=== PATIENT | female | born 1950 | race Caucasian/White ===

== ENCOUNTER 2023-12-18 03:29 | Inpatient (IN) | payer MEDICARE, OTHER, SELFPAY ==
[2023-12-17 23:00] VITALS: BP 123/65
[2023-12-17 23:01] VITALS: BP 123/65
[2023-12-18] VITALS (9 sets, daily range): BP systolic 112–150; BP diastolic 61–95
--- NOTE | 2023-12-18 00:05 | ED.MUSCINJ ---
HPI-Injury
<JENNY Connor - Last Filed: 12/18/23 00:36>
General
Chief Complaint: Fall
Source: patient
Exam Limitations: none
Time Seen by Provider: 12/17/23 23:39
Travel History
Have you had any contact with someone who has COVID-19?: No
Do you have any symptoms of coronavirus? Fever > 100 degrees, chills, cough, shortness of breath, sore throat, loss of taste or smell, muscle aches, or headache?: No
History of Present Illness-Injury
Initial Injury comments:
73 YO F with PMH of HLD presents here today for fall on her left hip x 6 hours. Pt reports she was carrying a plant and wearing flip flops when she tripped on a rug. She then fell directly onto her left hip. She took an Aleve which did not provide
relief. She also iced and applied heat without much relief. She rates the pain a 4/10 at rest and describes the pain as 'labor-like' if she attempts to walk or move her hip. She does mention radiation of pain into her left knee and left ankle. Pt
states this has never happened before. She reports some discomfort in the right hip, unrelated to her injury. She is no currently in PT for her right hip, which he states she feels discomfort in at times. Denies N,V,D, chest pain or SOB.
Denies surgical orthopedic history.
Past History
<JENNY Connor - Last Filed: 12/18/23 00:36>
Past History
ED Past Medical History: Hypercholesterolemia; Negative CAD or HTN
ED Past Surgical History:
Social History
Tobacco: Smoker
Alcohol: None
Drug: None
Personal:
Living: with family
Family History
Family History: Other (No significant medical history)
Review of Systems
<JENNY Connor - Last Filed: 12/18/23 00:36>
Review of Systems
Constitutional: Reports no symptoms
EENT: Reports no symptoms
Respiratory: Reports no symptoms
Cardiac: Reports no symptoms
ABD/GI: Reports no symptoms
: Reports no symptoms
Musculoskeletal: Reports muscle pain
Skin: Reports no symptoms
Neurological: Reports no symptoms
Endocrine: Reports no symptoms
Hematologic/Lymphatic: Reports no symptoms
Psychiatric: Reports no symptoms
Musculoskeletal Injury Exam
<ST GeetaOR - Last Filed: 12/18/23 00:36>
Musculoskeletal Injury Exam
Left:
Pain with Movement?: Severe
Tender to palpation?: Severe
Phy Exam
<Marina Hathaway [facility] - Last Filed: 12/18/23 00:36>
General Physical Exam
General Presentation: well appearing and mild distress
General age: appears stated age
General Skin: warm and dry
General Habitus: normal
General Mental: alert
General Hydration: appears well hydrated
Cardiovascular Exam
Cardiovascular Exam: regular rate/rhythm
Pulmonary Exam
Pulmonary Exam: lungs clear
Neurological Exam
Neurological Exam: alert and oriented x3
Musculoskeletal Exam
Musculoskeletal Exam: other
Injury Course
<Marina Hathaway [facility] - Last Filed: 12/18/23 00:36>
Orders/Labs/Results
Orders:
Orders
12/17/23 23:02
CR Hip - LT w/wo Pel 2-3 Vw* Urgent
Reason For Exam: left hip pain/mechanical fall
Include a pelvis x-ray?: Yes
12/18/23 00:25
CT Lower Ext W/o Iv Cont Lt Urgent
Comment:
Reason For Exam: fall, severe L hip pain.
12/18/23 00:27
Ketorolac [Toradol] 15 mg IV NOW STA
12/18/23 00:37
CPK [Creatine Phosphokinase] Urgent
Complete Blood Count/With Diff Urgent
Comprehensive Metabolic Panel Urgent
12/18/23 01:51
Urinalysis Reflex To Culture Urgent
Date Specimen was Collected: 12/18/23
Time Specimen was Collected: 01:45
Urine Microscopic Reflex Cult Urgent
Urine Culture Urgent
ROMY Source: U
Specimen Description:
Date Specimen was Collected: 12/18/23
Time Specimen was Collected: 01:45
12/18/23 02:20
Admit/Transfer Patient As Directed
Co-Sign Provider:
Level of Care: Inpatient admission
Assign to:: Medical/Surgical
Physician / Group: Isabela/hospitalist
Diagnosis: Fall and L hip fracture
Reason for Hospitalization: Fall and L hip fracture
Expected length of stay greater than two midnights?: Yes
ELOS- Estimated Length of Stay in days: 3
I certify the patient meets the requirements for IP care: Yes
12/18/23 02:21
Code Status As Directed
Resuscitation Status: Full Code
12/18/23 03:31
Bisacodyl [Dulcolax] 10 mg RECTAL [id number] PRN
Docusate W/Senna [Senokot-S] 1 tablet PO BIDPRN PRN
Morphine Sulfate 2 mg IV Q4HPRN PRN
Ondansetron Injectable [Zofran] 4 mg IV Q6HPRN PRN
Polyethylene Glycol Powder [Miralax] 17 grams PO DAILYPRN PRN
12/18/23 03:31
ORTHOPEDIC CONSULT Routine
Consulting Provider: Daryn Jaffe
Was physician already notified: Yes
Activity As Directed
Activity Level: As Tolerated
Pneumatic Compression Sleeves As Directed
Type: Knee high
Comment: RLE
Vital Signs As Directed
Frequency: Per unit guidelines
DX Deep Vein Thrombosis Video Routine
12/18/23 05:38
Basic Metabolic Panel IN AM
Complete Blood Count/No Diff IN AM
Magnesium IN AM
12/18/23 Breakfast
Regular
At Your Request: Full Participation
12/18/23 08:00
Lansoprazole [Prevacid] 30 mg PO DAILY
12/18/23 22:00
Atorvastatin [Lipitor] 10 mg PO HS
Abnormal Lab Results
12/18/23 12/18/23
00:37 01:51
MCH 31.4 H pg
(27.0-31.0)
Absolute Neuts (auto) 7.1 H 10^3/uL
(1.4-6.5)
Absolute Lymphs (auto) 1.1 L 10^3/uL
(1.2-3.4)
Absolute Monos (auto) 0.8 H 10^3/uL
(0.1-0.6)
Neutrophils % 77.3 H %
(42.2-75.2)
Lymphocytes % 12.4 L %
(20.5-51.1)
BUN 31 H mg/dl
(7-17)
Creatinine 0.5 L mg/dL
(0.6-1.0)
Leukocyte Esterase Rfl Trace A
(Negative)
Urine RBC 3-6 A /HPF
(0-2)
Urine Bacteria (Reflex) Moderate A
(Negative)
12/18/23 00:37
12/18/23 00:37
<Brenda Redmond, - Last Filed: 12/18/23 07:16>
Orders/Labs/Results
Orders:
Orders
12/17/23 23:02
CR Hip - LT w/wo Pel 2-3 Vw* Urgent
Reason For Exam: left hip pain/mechanical fall
Include a pelvis x-ray?: Yes
12/18/23 00:25
CT Lower Ext W/o Iv Cont Lt Urgent
Comment:
Reason For Exam: fall, severe L hip pain.
12/18/23 00:27
Ketorolac [Toradol] 15 mg IV NOW STA
12/18/23 00:37
CPK [Creatine Phosphokinase] Urgent
Complete Blood Count/With Diff Urgent
Comprehensive Metabolic Panel Urgent
12/18/23 01:51
Urinalysis Reflex To Culture Urgent
Date Specimen was Collected: 12/18/23
Time Specimen was Collected: 01:45
Urine Microscopic Reflex Cult Urgent
Urine Culture Urgent
ROMY Source: U
Specimen Description:
Date Specimen was Collected: 12/18/23
Time Specimen was Collected: 01:45
12/18/23 02:20
Admit/Transfer Patient As Directed
Co-Sign Provider:
Level of Care: Inpatient admission
Assign to:: Medical/Surgical
Physician / Group: Isabela/hospitalist
Diagnosis: Fall and L hip fracture
Reason for Hospitalization: Fall and L hip fracture
Expected length of stay greater than two midnights?: Yes
ELOS- Estimated Length of Stay in days: 3
I certify the patient meets the requirements for IP care: Yes
12/18/23 02:21
Code Status As Directed
Resuscitation Status: Full Code
12/18/23 03:31
Bisacodyl [Dulcolax] 10 mg RECTAL [id number] PRN
Docusate W/Senna [Senokot-S] 1 tablet PO BIDPRN PRN
Morphine Sulfate 2 mg IV Q4HPRN PRN
Ondansetron Injectable [Zofran] 4 mg IV Q6HPRN PRN
Polyethylene Glycol Powder [Miralax] 17 grams PO DAILYPRN PRN
05/23/24 03:31
ORTHOPEDIC CONSULT Routine
Consulting Provider: Daryn Jaffe
Was physician already notified: Yes
Activity As Directed
Activity Level: As Tolerated
Pneumatic Compression Sleeves As Directed
Type: Knee high
Comment: RLE
Vital Signs As Directed
Frequency: Per unit guidelines
DX Deep Vein Thrombosis Video Routine
12/18/23 05:38
Basic Metabolic Panel IN AM
Complete Blood Count/No Diff IN AM
Magnesium IN AM
12/18/23 Breakfast
Regular
At Your Request: Full Participation
12/18/23 08:00
Lansoprazole [Prevacid] 30 mg PO DAILY
12/18/23 22:00
Atorvastatin [Lipitor] 10 mg PO HS
Abnormal Lab Results
12/18/23 12/18/23
00:37 01:51
MCH 31.4 H pg
(27.0-31.0)
Absolute Neuts (auto) 7.1 H 10^3/uL
(1.4-6.5)
Absolute Lymphs (auto) 1.1 L 10^3/uL
(1.2-3.4)
Absolute Monos (auto) 0.8 H 10^3/uL
(0.1-0.6)
Neutrophils % 77.3 H %
(42.2-75.2)
Lymphocytes % 12.4 L %
(20.5-51.1)
BUN 31 H mg/dl
(7-17)
Creatinine 0.5 L mg/dL
(0.6-1.0)
Leukocyte Esterase Rfl Trace A
(Negative)
Urine RBC 3-6 A /HPF
(0-2)
Urine Bacteria (Reflex) Moderate A
(Negative)
12/18/23 00:37
12/18/23 00:37
<JENNY Connor - Last Filed: 12/18/23 00:36>
MDM/Problems Addressed
Differential Diagnosis Includes:
Hip fracture, hip dislocation
<JENNY Connro - Last Filed: 12/18/23 00:36>
*Critical Care Note
Total Time (30-74mins, 75-104mins- exclusive of procedures): Not Applicable
<Brenda Redmond DO - Last Filed: 12/18/23 07:16>
*Radiology
Radiology exam reviewed: preliminary read by ED provider (There is a question of nondisplaced fracture intertrochanteric but not definitive. Will check CT) and radiology read reviewed (CAT scan shows intertrochanteric left hip fracture)
*Pulse Oximetry
Patient hypoxic: no
ED Attending Note
<JENNY Connor - Last Filed: 12/18/23 00:36>
-
Portions of this chart may have been created with voice recognition software.� Occasional wrong word or��sound alike� substitutions may have occurred due to the inherent limitations of voice recognition software.
<Brenda Redmond DO - Last Filed: 12/18/23 07:16>
ED Attending Note
Patient seen and examined by attending physician: Yes
I performed the substantive portion of visit, reviewed & personally made and approve the management plan that is documented in note by myself or TRISTEN.: Yes
I performed a history and physical exam of patient and discussed management with resident, I reviewed resident's note and agree with documented findings and plan of care.: Yes
ED Attending Note:
This is a 73-year-old woman with history of hyperlipidemia maintained on simvastatin. She arrives via EMS after suffering mechanical trip and fall at home tripping over a throw rug while wearing flip-flops falling forward onto hardwood floor. She
denies head injury nor loss of consciousness and has full recollection of the events. She noted immediate severe pain about her left hip after fall with inability to reposition and inability to stand. She did call out to her who was in the
room for assistance but despite local ice, heat and taking 1 Aleve, tincture of time it took approximately 3 hours to eventually be able to to reposition and get up off of the floor to sit in a nearby chair. After doing so she continues with severe
left hip pain and thus called 911. She denies back pain, no abdominal pain, no dizziness nor lightheadedness, no neck pain or headache, no nausea or vomiting. Left hip pain intermittently radiates down her left lower extremity but she denies
weakness nor numbness.
Besides simvastatin she takes Aleve intermittently for osteoarthritis. She takes no anticoagulants including low-dose aspirin.
She is generally quite active, gardening and doing other outdoor activities without limitations.
GENERAL: 73-year-old woman appears her stated age, awake and alert, pleasant, appears in mild distress related to pain. Easily communicative. is accompanying. Mild odor of tobacco about the patient.
EYE: pupils equal and reactive. anicteric. The head is normocephalic, atraumatic.
NECK: Supple, nontender, no midline bony tenderness, full range of motion without difficulty nor pain, no significant adenopathy.
ENT: posterior pharynx is clear, oral mucosa is moist. No rhinorrhea. TMs are clear bilaterally.
CARDIAC: Regular rate and rhythm. no murmur.
LUNGS: Clear breath sounds bilaterally, no acute respiratory distress, no wheezes/rales/rhonchi. No chest wall tenderness.
ABDOMEN: Soft, nondistended, without focal tenderness, no r/g, no cvat. normoactive BS.
BACK: No midline bony tenderness. No bony pelvic tenderness with pelvic rock.
NEUROLOGICAL: Alert and oriented x3, no focal neuro deficits. Motor strength is 5/5 bilaterally. Gross sensation is intact.
SKIN: Warm and dry, normal color, skin intact. No rash.
MUSCULOSKELETAL: No C/C/E. peripheral pulses are full and equal b/l. There is moderate tenderness about the left anterolateral hip with markedly restricted range of motion of the left hip related to pain. There is no tenderness to the thigh nor
knee nor lower extremity. Distal sensation, strength intact. There is no evidence of leg length discrepancy and left lower extremity is not externally rotated.
PSYCH: Normal and appropriate interaction.
Concern for left hip fracture, other consideration is pubic ramus fracture.
Left hip x-ray however is unremarkable, no definitive evidence of fracture however I question mild none descriptive lucency at the greater trochanter there is no convincing evidence of fracture.
Will check CT of the left hip.
Will medicate for pain with a small dose of IV Toradol. Patient elects at least at this point to forego narcotic pain medication.
She does admit to lying on the hardwood floor for approximately 3 hours, thus there could be some concern for rhabdo myelitis, will check CPK along with routine labs.
She remains bright and alert, no focal neurodeficits, denies head injury and takes no anticoagulants thus no indication for CT of the head.
There is no midline vertebral tenderness, nothing to suggest vertebral fracture.
Discharge Plan
Departure
Patient Disposition: Admit
Date of Disposition: 12/18/23
Time of Disposition: 01:41
Admit to: Med/Surg
Admit to doctor: Isabela
Presentation/result/management discussed w/ accepting MD/DO: Hospitalist
Condition: Fair
Discharge Problem:
acute left hip fracture
Interventions
Interventions:
*Risk Screen - Suicide Last Done: 12/17/23 22:58
*General Assessment Last Done: 12/17/23 22:58
*Neglect/Abuse Screening Last Done: 12/17/23 22:58
ED- Fall Risk Assessment Last Done: 12/17/23 23:19
*ED COVID-19 Vaccine History Last Done: 12/17/23 22:58
ED-Musculoskeletal Assessment Last Done: 12/17/23 23:19
ED- Neurological Assessment Last Done: 12/17/23 23:19
[2023-12-18] MEDS: TORADOL 15 MG IV ×2 (00:41→13:22)
[2023-12-18 00:44] LABS: % Basophils 0.1 % (0-2); % Eosinophils 1.1 % (0-6); % Immature Granulocytes 0.4 % (0-0.5); % Lymphocytes 12.4 % (20.5-51.1); % Monocytes 8.7 % (1.7-9.3); % Neutrophils 77.3 % (42.2-75.2); Absolute Eosinophils 0.1 10^3/uL (0-0.7); Absolute Lymphocytes 1.1 10^3/uL (1.2-3.4); Absolute Monocytes 0.8 10^3/uL (0.1-0.6); Absolute Neutrophils 7.1 10^3/uL (1.4-6.5); Hematocrit 39.5 % (37.0-47.0); Hemoglobin 13.7 g/dL (12.0-16.0); Mean Corp Hgb Conc. 34.7 g/dL (33.0-37.0); Mean Corpuscular Hgb 31.4 pg (27.0-31.0); Mean Corpuscular Volume 90.4 fL (81.0-99.0); Mean Platelet Volume 9.1 fL (7.4-10.4); Platelet Count 173 10^3/uL (130-400); Red Blood Cell Count 4.37 10^6/uL (4.20-5.40); Red Cell Dist. Width 12.4 % (11.5-14.5); White Blood Cell Count 9.2 10^3/uL (4.8-10.8)
[2023-12-18 00:45] LABS: Nucleated Red Blood Cells % 0 %
[2023-12-18 01:03] LABS: ALT (SGPT) 20 U/L (0-35); AST (SGOT) 25 U/L (14-36); Albumin 3.9 g/dl (3.5-5.0); Alkaline Phosphatase 56 U/L (38-126); Blood Urea Nitrogen 31 mg/dl (7-17); Calcium 9.8 mg/dl (8.4-10.2); Carbon Dioxide 29 mmol/L (22-30); Creatine Phosphokinase 84 U/L (30-135); Glucose 99 mg/dl (70-99); Total Bilirubin 0.4 mg/dl (0.2-1.3); Total Protein 6.3 g/dl (6.3-8.2); eGFR > 60.00
[2023-12-18 01:09] LABS: Chloride 104 mmol/L (98-107); Potassium 3.9 mmol/L (3.5-5.1); Sodium 138 mmol/L (135-145)
--- NOTE | 2023-12-18 01:41 | HPS.HSE ---
Family Physician
-
Family Physician: Lyle Grayson
Chief Complaint
-
Mechanical fall with left hip fracture
History of Present Illness
HPI: 73 yo F PMH HLD; p/w mechanical fall at home which resulted in left hip pain. Pt was carrying a plant and wearing flip flops when she tripped over a rug. She fell directly onto her left hip. The hip pain is most severe with movement.
She took Aleve without pain relief. She is not on any blood thinner
Medical History
Past Medical History
Past Medical History: Reports Other
Additional Past Medical History:
HLD
Past Surgical History: Reports Gynocological (Ovarian cyst removal)
Social History
Tobacco: Smoker (1 pack/day for about 20 years)
Alcohol: Occasional
Personal:
Living: With Family
Family History
Family History: Not pertinent
Allergies / Home Medications
Allergies reflects when Allergies were last updated in [facility].
Home Medications with original date entered in [facility]
Allergy/Medication List:
Medications on admission are unable to be verified or confirmed at this time.
Review of Systems
-
Musculoskeletal: Reports See HPI and Joint Pain (L hip)
Physical Exam
Vital Signs
Vital Signs
Temp Pulse Resp BP Pulse Ox
36.7 C 72 19 126/71 97
12/17/23 22:58 12/17/23 22:58 12/17/23 22:58 12/18/23 01:00 12/17/23 22:58
Physical Exam
General: Well Developed, Well Nourished, No Apparent Distress, Conversant and Pain
HEENT: NormoCephalic, Moist mucous membranes and Atraumatic
Respiratory: Clear and Non Labored Respirations; No Accessory Resp Muscle Use
Cardiac: S1/S2 and Regular Rhythm; No Murmur or Rub
GI: Soft, Non Tender, Non Distended and Normal Bowel Sounds; No Organomegaly
Rectal: Deferred by Provider
Musculoskeletal: No Edema
Skin: No Rash
Neuro: Awake, Alert and Nonfocal/grossly intact
Psych: Calm and Intact Judgment/Insight
Laboratory Results
-
12/18/23 00:37
12/18/23 00:37
Laboratory Results
Total Bilirubin 0.4 mg/dl (0.2-1.3) 12/18/23 00:37
AST 25 U/L (14-36) 12/18/23 00:37
ALT 20 U/L (0-35) 12/18/23 00:37
Alkaline Phosphatase 56 U/L (38-126) 12/18/23 00:37
Data Reviewed
-
Lab Data: Labs Reviewed by me
Impression/Plan
-
HPI: 73 yo F PMH HLD; p/w mechanical fall at home which resulted in left hip pain. Pt was carrying a plant and wearing flip flops when she tripped over a rug. She fell directly onto her left hip. The hip pain is most severe with movement.
She took Aleve without pain relief. She is not on any blood thinner
A/P:
# Mechanical fall with left hip fracture
Follow formal reports of x-ray and CT left hip
Pain control with IV morphine
Ortho consulted, Dr. Jaffe will plan surgery on Friday
DVT ppx with SCD for now prior to OR
Patient is low to intermediate risk for low to intermediate risk procedure. Benefit of procedure outweighs risk.
# HLD
cont [employer] Statin
# Active smoker/nicotine dependence, 1 pack/day for 20 years
Patient declined nicotine patch at this time
DVT ppx: SCD right lower extremity
FC
[2023-12-18 01:57] LABS: Urine Albumin Negative (Neg - Trace); Urine Bilirubin Negative (Negative); Urine Character Clear (Clear); Urine Color Yellow; Urine Glucose Negative (Negative); Urine Ketone Negative (Negative); Urine Leukocyte Trace (Negative); Urine Nitrite Negative (Negative); Urine Occult Blood Negative (Negative); Urine Specific Gravity 1.015 (<1.030); Urine Urobilinogen Negative (Neg - 1+)
[2023-12-18 03:34] LABS: Urine Squamous Cell 16-20 /LPF (Few)
[2023-12-18 03:35] LABS: Urine Bacteria Moderate (Negative); Urine White Cell 0-2 /HPF (0-5)
[2023-12-18 06:07] LABS: Hematocrit 39.6 % (37.0-47.0); Hemoglobin 13.9 g/dL (12.0-16.0); Mean Corp Hgb Conc. 35.1 g/dL (33.0-37.0); Mean Corpuscular Hgb 31.6 pg (27.0-31.0); Mean Platelet Volume 9.3 fL (7.4-10.4); Platelet Count 183 10^3/uL (130-400); Red Cell Dist. Width 12.3 % (11.5-14.5); White Blood Cell Count 6.9 10^3/uL (4.8-10.8)
[2023-12-18 06:28] LABS: Blood Urea Nitrogen 25 mg/dl (7-17); Calcium 9.6 mg/dl (8.4-10.2); Carbon Dioxide 26 mmol/L (22-30); Chloride 105 mmol/L (98-107); Glucose 94 mg/dl (70-99); Magnesium 2.1 mg/dl (1.6-2.3); Sodium 137 mmol/L (135-145); eGFR > 60.00
[2023-12-18] MEDS: MORPHINE SULFATE 2 MG IV (07:24)
--- NOTE | 2023-12-18 09:44 | W.PN.HOSP.TC ---
Today's Communication/Plan
-
Left hip fracture with planned intervention on 12/18.
N.p.o. postmidnight
Continue pain control
Mechanical DVT prophylaxis
Assessment / Plan
Assessment / Plan
HPI: 73 yo F PMH HLD; p/w mechanical fall at home which resulted in left hip pain. Pt was carrying a plant and wearing flip flops when she tripped over a rug. She fell directly onto her left hip. The hip pain is most severe with movement.
Impression:
Mechanical fall with left hip fracture
CT scan of the left hip: Nondisplaced intertrochanteric fracture left femur. Mildly comminuted greater trochanteric fracture.
Orthopedic consultation with pending decision for intervention.
Continue pain control with IV morphine
DVT prophylaxis: Mechanical pending surgical intervention.
Medical clearance: Patient with no chronic medical problems other than dyslipidemia. Denies any history of cardiovascular conditions, diabetes. No additional workup required for surgical clearance.
Dyslipidemia continue statin
Tobacco smoker/nicotine dependence.
1 pack/day for 20 years
Patient declined nicotine patch
Anticipated Discharge: > 48 hours
Subjective/Interval History
-
Date of Service: December 18, 2023
Objective Data
-
Labs:
Laboratory Results
12/18/23 12/18/23
00:37 05:38
WBC 9.2 6.9
Hgb 13.7 13.9
Hct 39.5 39.6
Plt Count 173 183
Sodium 138 137
Potassium 3.9 4.0
Chloride 104 105
Carbon Dioxide 29 26
BUN 31 H 25 H
Creatinine 0.5 L 0.5 L
Glucose 99 94
Calcium 9.8 9.6
Total Bilirubin 0.4
AST 25
ALT 20
Alkaline Phosphatase 56
Vital Signs:
Vital Signs
Temp Pulse Resp BP Pulse Ox
98 F 64 16 123/61 96
12/18/23 07:35 12/18/23 07:35 12/18/23 07:35 12/18/23 07:35 12/18/23 07:35
Physical Exam
-
General: Well Developed and No Apparent Distress
HEENT: Normocephalic, Atraumatic and Moist Mucous Membranes
Respiratory: Clear to Auscultation
Cardiac: Regular Rhythm and S1/S2; Negative Murmur, Rub or Gallop
GI: Soft, Nontender, Nondistended and Normal Bowel Sounds; Negative Organomegaly
Rectal: Deferred by Provider
Musculoskeletal: No Clubbing, No Cyanosis and No Edema
Skin: Negative Rash
Neuro: Nonfocal/Grossly Intact
--- NOTE | 2023-12-18 13:24 | PTCARENOTE ---
Pt arrived to 2S in bed. Full assessment completed. PRN torodol provided for c/o moderate L hip pain. LLE with decreased movement, neurovascular assessment otherwise intact. Purewick in use. Static air overlay applied. Bed locked and in the lowest
position, safety maintained. Oriented to room and call mcgregor.
--- NOTE | 2023-12-18 17:27 | CON.ORTHO ---
Consultation
-
Date/Time Consultation Requested: 1:30 AM 12/18/2023
Date/Time Consultation Performed: 730 AM 12/18/2023
Requesting Provider: Ruy
Performing Provider: Ld
Reason for Consultation: Left hip fracture
Consultation - Orthopedics
History
HPI: 73-year-old community ambulator presented to the [place] emergency department status post mechanical trip and fall at home with complaints of left hip pain and inability to bear weight. She was subsequently worked up diagnosed with a
nondisplaced left intertrochanteric femur fracture. She was admitted to the hospital service and orthopedics was consulted for further evaluation and treatment. Patient reports pain well localized to the groin lateral hip region. Pain is made
worse by palpation affected area with attempted ambulation. She does report smoking three quarters of a pack of cigarettes daily. She lives at home with her . She does not use any assistive devices for ambulatory assistance
Allergies / Home Medications
Past medical history: Hypercholesterolemia
Past surgical history:
Social history: Cigarette smoker, lives at home with
Family history: Not pertinent
Allergy/AdvReac Type Severity Reaction Status Date / Time
latex Allergy Itching Verified 12/18/23 10:13
Sulfa (Sulfonamide Allergy Unknown Verified 12/17/23 22:58
Antibiotics)
�Medication �Instructions �Recorded
simvastatin 20 mg tablet 40 mg PO HS 05/12/16
calcium carbonate 500 mg PO DAILY 12/18/23
cholecalciferol (vitamin D3) 25 25 mcg PO DAILY 12/18/23
mcg (1,000 unit) tablet (Vitamin
D3)
naproxen sodium 220 mg tablet 220 mg PO [id number] PRN mild pain 12/18/23
(Aleve)
therapeutic multivitamin 1 tab PO DAILY 12/18/23
vitamins A,C,L-this-qfblxc 2,148 1 tab PO DAILY 12/18/23
mcg-113 mg-45 mg-17.4 mg tablet
(PreserVision AREDS)
Vital Signs / Lab Results
Temp Pulse Resp BP Pulse Ox
98.4 F 110 17 150/95 96
12/18/23 15:00 12/18/23 15:00 12/18/23 15:00 12/18/23 15:00 12/18/23 15:00
12/18/23 05:38
12/18/23 05:38
10 point review systems reviewed and negative unless otherwise stated
General: Pleasant, no acute distress at rest
Musculoskeletal left lower extremity
Skin intact, no erythema, no ecchymotic staining
Tenderness palpation over groin and lateral trochanteric flare
No leg length discrepancy
No ipsilateral palpable knee effusion
Pain with logroll
Distal motor and sensation grossly intact positive EHL, FHL, ankle dorsiflexion, plantarflexion
Brisk cap refill
No other areas of bony tenderness palpation crepitation of long bones and joints on tertiary examination
Diagnostic studies
X-rays left hip and CT scan left hip I independently viewed by myself. There is evidence of mildly comminuted greater trochanter fracture. There is a few slices most notably on the coronal CT scan that does show a nondisplaced intertrochanteric
femur fracture.
Assessment / Plan
73-year-old female relatively healthy status post fall with nondisplaced left intertrochanteric femur fracture. I do long detailed discussion with the patient and her at bedside regarding diagnosis and treatment options. Discussed with
surgical nonsurgical options. After discussion we mutually like to proceed with surgical intervention in the form of cephalomedullary nail fixation. I did explain to the patient that her fracture is essentially nondisplaced and the goal of surgery
would be to stabilize the fracture and prevent any further interval displacement. We discussed risks benefits and alternatives of surgery. Discussed the usual expected perioperative postoperative course. After discussion verbal consent was
obtained. Will plan to obtain written consent prior to surgery
Nonweightbearing left lower extremity
Pain control
N.p.o. at midnight
Please hold DVT prophylaxis preparation for our
Medical management per primary team
Plan: 2 OR for operative fixation left nondisplaced intertrochanteric femur fracture pending OR availability and medical clearance
[2023-12-18] MEDS: LIPITOR 10 MG PO (22:27)
[2023-12-19] VITALS (12 sets, daily range): BP systolic 89–140; BP diastolic 52–75
--- NOTE | 2023-12-19 10:39 | PTCARENOTE ---
Called to room by PCT due to patient refusing to allow PCT's to perform CHG bath and bed change in preparation for OR today; Patient upset, states 'she has lost carloz' and 'people are not understanding me'; Explained to patient purpose of CHG bath
and complete bed change, explained process for completing these tasks; Patient noted to be verbally aggressive towards staff, angry, and uncooperative with staff; Patient complains of pain but refuses all pain medications available in the MAR;
Patient eventually allowed two RN's and PCT to complete CHG bath and complete bed change; Patient currently refusing Q2 turns, patient educated on importance of Q2 turns and pressure ulcer prevention; Patient allows right heel to be elevated but
refuses left heel to be elevated; Patient upset that surgery is tentatively scheduled for this afternoon and not this morning, states she is angry; Care ongoing
--- NOTE | 2023-12-19 11:43 | CM ---
Addendum entered by NIC Marrero 12/19/23 11:57:
PASRR attached to SNF referral.
Original Note:
Met with patient and in room prior to surgery. Patient admitted from home with fractured left hip. Prior to admit patient independent in home and community. Patient and spouse live in 2 level home. THere are 3 steps to enter front or rear
of house. They usually use rear of house and those steps have bilateral rails. There is no bathroom on first floor. UP 13 steps with left rail ascending to bedrooms and full bathroom.
Patient is willing to get commode and sleep on sofa on first floor.
She has to step over tub to get into shower. There is one shower rail and patient also holds onto soap tray.
There are crutches of at home.
She has not had any history of VNA or SNF rehab.
PCP Dr. Jeremy Grayson
[facility]: [facility]
Discussed options for home care and snf and reviewed medicare ratings. Per patient referrals made to [facility] and [facility] for post acute care.
Preference of patient and spouse is to go home if able. Referrals sent to both in [facility].
PLAN: snf versus home with VNA.
[2023-12-19] MEDS: TORADOL 15 MG IV ×2 (12:46→20:06)
--- NOTE | 2023-12-19 16:25 | W.PN.HOSP.TC ---
Today's Communication/Plan
-
NPO.
Pending OR
Assessment / Plan
Assessment / Plan
HPI: 73 yo F PMH HLD; p/w mechanical fall at home which resulted in left hip pain. Pt was carrying a plant and wearing flip flops when she tripped over a rug. She fell directly onto her left hip. The hip pain is most severe with movement.
Impression:
Mechanical fall with left hip fracture
CT scan of the left hip: Nondisplaced intertrochanteric fracture left femur. Mildly comminuted greater trochanteric fracture.
Orthopedic consultation with pending decision for intervention.
Continue pain control with IV morphine
DVT prophylaxis: Mechanical pending surgical intervention.
Medical clearance: Patient with no chronic medical problems other than dyslipidemia. Denies any history of cardiovascular conditions, diabetes. No additional workup required for surgical clearance.
Dyslipidemia continue statin
Tobacco smoker/nicotine dependence.
1 pack/day for 20 years
Patient declined nicotine patch
Anticipated Discharge: > 48 hours
Subjective/Interval History
-
Date of Service: December 19, 2023
Objective Data
-
Vital Signs:
Vital Signs
Temp Pulse Resp BP Pulse Ox
98.0 F 65 18 140/75 97
12/19/23 15:27 12/19/23 15:27 12/19/23 15:27 12/19/23 15:27 12/19/23 15:27
I&O
12/18/23 12/19/23 12/20/23
06:59 06:59 06:59
Intake Total 480 / 480
Output Total 550 / 550
Balance -70 / -70
Physical Exam
-
General: Well Developed and No Apparent Distress
HEENT: Normocephalic, Atraumatic and Moist Mucous Membranes
Respiratory: Clear to Auscultation
Cardiac: Regular Rhythm and S1/S2; Negative Murmur, Rub or Gallop
GI: Soft, Nontender, Nondistended and Normal Bowel Sounds; Negative Organomegaly
Rectal: Deferred by Provider
Musculoskeletal: No Clubbing, No Cyanosis and No Edema
Skin: Negative Rash
Neuro: Nonfocal/Grossly Intact
--- NOTE | 2023-12-19 17:23 | PTCARENOTE ---
Patient to OR for planned procedure
--- NOTE | 2023-12-19 19:18 | OR.RPT ---
Operative Report
Operative Report
Anesthesia Type:
General
Operative Indications:
Left intertrochanteric femur fracture, nondisplaced
Operative Findings :
Same
Complications:
None
Implants:
125 degree x 10 mm short gamma nail
Procedure and Technique:
Insertion left short cephalomedullary nail
INDICATIONS FOR PROCEDURE:
73-year-old patient presented status post mechanical fall. They were subsequently diagnosed with a nondisplaced intertrochanteric femur fracture. Orthopedics was consulted for further evaluation and treatment. After discussion with the patient
and her family, decision was made to proceed with operative intervention in the form of short cephalomedullary nail. Long discussion was had regarding risks and benefits of procedure. Risks include but are not limited to infection, blood loss,
damage to surrounding structures, persistent pain, loss of function, need for repeat surgery, implant cut out, periprosthetic fracture, DVT/PE and adverse risks of anesthesia. Benefits include early mobilization and fracture stabilization. After
discussion written informed consent was obtained.
OPERATIVE PROCEDURE:
]
Patient was seen and identified in the preoperative holding area. Operative extremity was marked. Patient was taken to the operating room and provided anesthesia by the anesthesia team. Placed supine on fracture table. Nonoperative extremity was
placed in a scissored position and padded with a pad to the central post of the fracture table. Operative extremity was placed in a well-padded fracture boot. Biplanar fluoroscopy confirmed appropriate reduction after axial traction, adduction and
slight internal rotation of the fracture. Operative extremity was then prepped and draped in normal sterile fashion. Timeout was performed again identifying the operative extremity correctly. Preoperative antibiotics were addressed.
Approximately 5 cm incision was made 2 fingerbreadths proximal to the greater trochanter. Sharp dissection was carried through skin and subcutaneous tissues deep fascial layers. Guidepin was then inserted under plantar fluoroscopic guidance
through the greater trochanter in accordance with the implants operative technique. This was inserted to a depth just distal to the lesser trochanter. Proximal opening reamer was then utilized. Attempt was made to insert a 10 mm short gamma nail.
Patient had quite thick diaphyseal cortices and we are not able to pass the nail. We did insert a ball-tipped guidewire and flexible reamers up to 11.5 mm. We then were able to pass the 10 mm x 125 degree short gamma nail to the appropriate
depth. Trocar was then inserted through the aiming arm. Sharp dissection was then carried through skin and subcutaneous tissues as well as deep fascial layers. Guidewire was inserted through the trocar into the femoral neck and head.
Appropriate position was confirmed under biplanar fluoroscopy. Attention was made to minimize the tip apex distance. Measurements were obtained for the cephalomedullary screw. Cannulated drill was then drilled to the appropriate depth followed by
the insertion of cannulated cephalomedullary screw. Appropriate final position of the screw within the confines of the femoral neck and head were confirmed again on biplanar fluoroscopy. Setscrew was deployed. additional trocar was then inserted
through the aiming arm for the distal interlocking screw. Sharp dissection was carried through skin, subcutaneous tissues and deep fascial layers. Appropriate length interlocking screw was then drilled and inserted. Final appropriate positioning
was confirmed again on biplanar fluoroscopy. Satisfied with the extent of surgery, wounds were copiously irrigated with normal saline solution and closed in a layered fashion utilizing 0 Vicryl for deep fascial layer, 2-0 Vicryl for subcu cutaneous
layer and philip for skin. Aquacel dressings were applied. Anesthesia was reversed and patient was taken to the operating room in stable condition. Postoperative plans include weightbearing the patient's tolerance operative extremity. Recommend
DVT prophylaxis renally dosed Lovenox x 28 days. Plan to see patient back in the office in 2 weeks
Disposition:
PACU stable condition
[2023-12-19] MEDS: MORPHINE SULFATE 2 MG IV (19:51)
[2023-12-19] MEDS: NORMOSOL-R 1000 IV (20:17)
[2023-12-19] MEDS: COLACE 100 MG PO (20:52)
[2023-12-19] MEDS: LIPITOR 10 MG PO (20:52)
--- NOTE | 2023-12-19 21:00 | PTCARENOTE ---
report received from [facility]. pt aaox3 but lethargic. Normosol @ 100cc/hr. Aquacel x2 to left hip cdi. n/v checks normal. spouse at bedside. purewic placed. will monitor.
[2023-12-20] VITALS (8 sets, daily range): BP systolic 102–131; BP diastolic 53–79; PULSE 74–77; O2SAT 97
[2023-12-20] MEDS: ANCEF 5 IV ×2 (03:15→09:48)
[2023-12-20 05:24] LABS: % Basophils 0.2 % (0-2); % Immature Granulocytes 0.3 % (0-0.5); % Monocytes 3.5 % (1.7-9.3); Absolute Lymphocytes 0.5 10^3/uL (1.2-3.4); Absolute Monocytes 0.2 10^3/uL (0.1-0.6); Absolute Neutrophils 5.5 10^3/uL (1.4-6.5); Hematocrit 37.8 % (37.0-47.0); Hemoglobin 13.3 g/dL (12.0-16.0); Mean Corp Hgb Conc. 35.2 g/dL (33.0-37.0); Mean Corpuscular Hgb 31.5 pg (27.0-31.0); Mean Corpuscular Volume 89.6 fL (81.0-99.0); Mean Platelet Volume 9.3 fL (7.4-10.4); Nucleated Red Blood Cells % 0 %; Platelet Count 154 10^3/uL (130-400); Red Blood Cell Count 4.22 10^6/uL (4.20-5.40); Red Cell Dist. Width 12.1 % (11.5-14.5); White Blood Cell Count 6.2 10^3/uL (4.8-10.8)
[2023-12-20 05:49] LABS: Blood Urea Nitrogen 21 mg/dl (7-17); Calcium 8.7 mg/dl (8.4-10.2); Carbon Dioxide 24 mmol/L (22-30); Chloride 105 mmol/L (98-107); Glucose 134 mg/dl (70-99); Potassium 4.4 mmol/L (3.5-5.1); Sodium 137 mmol/L (135-145); eGFR > 60.00
[2023-12-20] MEDS: NORMOSOL-R 1000 IV (06:40)
--- NOTE | 2023-12-20 07:01 | PTCARENOTE ---
bladder scan for 600. straight cath for 650 w/ relief.
--- NOTE | 2023-12-20 07:30 | W.PN.ORTHO ---
Today's Communication / Plan
-
73-year-old female postop day 1 status post left short cephalomedullary nail insertion
Weightbearing as tolerated left lower extremity
PT OT
Pain control
DVT prophylaxis: Recommend renally dosed Lovenox daily x 28 days
Medical management per primary team
Plan: Follow-up in the office in 2 to 3 weeks repeat evaluation with planned removal of philip
Subjective
.
.:
Patient comfortable in bed this morning. Reports actually some improvement in left hip pain this morning.
Vital Signs and Labs
.
Vital Signs and Labs:
Lab Results
12/20/23 04:34
12/20/23 04:34
Temp Pulse Resp BP Pulse Ox
98.0 F 75 18 103/53 97
12/20/23 03:18 12/20/23 03:18 12/20/23 03:18 12/20/23 03:18 12/20/23 03:18
Physical Exam
-
Musculoskeletal left lower extremity
No significant bloody drainage on dressings
Moderate swelling left thigh
Leg soft and compressible
Positive EHL, FHL, ankle dorsiflexion, plantarflexion
Sensation grossly tact light touch in all dispositions distally
[2023-12-20] MEDS: COLACE PO ×2 (08:21→20:25)
[2023-12-20] MEDS: TYLENOL 1000 MG PO ×3 (08:23→20:25)
[2023-12-20] MEDS: LOVENOX SC (08:24)
--- NOTE | 2023-12-20 10:17 | W.PN.HOSP.TC ---
Today's Communication/Plan
-
pt/ot
pain control
lovenox
Assessment / Plan
Assessment / Plan
HPI: 73 yo F PMH HLD; p/w mechanical fall at home which resulted in left hip pain. Pt was carrying a plant and wearing flip flops when she tripped over a rug. She fell directly onto her left hip. The hip pain is most severe with movement.
Impression:
Mechanical fall with left hip fracture
CT scan of the left hip: Nondisplaced intertrochanteric fracture left femur. Mildly comminuted greater trochanteric fracture.
Orthopedic consultation
Continue pain control standing Tylenol, p.o. Oxy and IV meds as needed
status post left short cephalomedullary nail insertion on 12/18
DVT prophylaxis: lovenox
Dyslipidemia continue statin
Tobacco smoker/nicotine dependence.
1 pack/day for 20 years
Patient declined nicotine patch
PT/OT pending for disposition efforts
Anticipated Discharge: Within 24 hours
Subjective/Interval History
-
Date of Service: December 20, 2023
states of mild hip pain
Objective Data
-
Labs:
Laboratory Results
12/20/23
04:34
WBC 6.2
Hgb 13.3
Hct 37.8
Plt Count 154
Sodium 137
Potassium 4.4
Chloride 105
Carbon Dioxide 24
BUN 21 H
Creatinine 0.4 L
Glucose 134 H
Calcium 8.7
Vital Signs:
Vital Signs
Temp Pulse Resp BP Pulse Ox
98.3 F 75 17 131/67 96
12/20/23 07:15 12/20/23 07:15 12/20/23 07:15 12/20/23 07:15 12/20/23 08:00
I&O
12/19/23 12/20/23 12/21/23
06:59 06:59 06:59
Intake Total 480 / 480 1909
Output Total 550 / 550 1050 / 1050
Balance -70 / -70 860 /
Physical Exam
-
General: Well Developed and No Apparent Distress
HEENT: Normocephalic, Atraumatic and Moist Mucous Membranes
Respiratory: Clear to Auscultation
Cardiac: Regular Rhythm and S1/S2; Negative Murmur, Rub or Gallop
GI: Soft, Nontender, Nondistended and Normal Bowel Sounds; Negative Organomegaly
Rectal: Deferred by Provider
Musculoskeletal: No Clubbing, No Cyanosis and No Edema
Skin: Negative Rash
Neuro: Awake and Nonfocal/Grossly Intact
Psych: Calm
--- NOTE | 2023-12-20 10:29 | PTCARENOTE ---
Patient refusing daily Enoxaparin shot for deep vein thrombosis prophylaxis; Patient educated on what the medication is, why it is prescribed, risk of deep vein thrombosis; Patient adamant in refusing, states she is 'not really a person who takes
medications'; Dr. Hopper notified; Dr. Jaffe notified
--- NOTE | 2023-12-20 11:25 | W.PN.UPDATE ---
Update Note
Progress Note Update
Patient reportedly refusing Lovenox. Would recommend 81mg ASA BID as an alternative for DVT prophylaxis.
[2023-12-20] MEDS: ASPIR LOW (ENTERIC COATED) 81 MG PO (20:25)
[2023-12-20] MEDS: LIPITOR 10 MG PO (20:25)
[2023-12-21] MEDS: TYLENOL 1000 MG PO ×2 (01:30→08:10)
[2023-12-21] MEDS: ASPIR LOW (ENTERIC COATED) 81 MG PO (08:10)
[2023-12-21 08:16] VITALS: BP 126/78
[2023-12-21] MEDS: LOVENOX 40 MG SC (08:16)
[2023-12-21] MEDS: COLACE PO (08:18)
--- NOTE | 2023-12-21 08:28 | PTCARENOTE ---
Pt re educated on Lovenox and Aspirin therapy. Question whether Pt is either forgetful or not forthcoming in regards to education received about Lovenox, and Aspirin therapy. Pt states 'No one has told me anything about this (meaning Lovenox)
medicine, Stan I am on Aspirin too?' After education Pt agreed to take baby Aspirin, and allow Lovenox injection to be given. Will monitor for further educational needs.
--- NOTE | 2023-12-21 10:35 | W.PN.HOSP.TC ---
Today's Communication/Plan
-
home vn
op ortho f/u
Assessment / Plan
Assessment / Plan
HPI: 73 yo F PMH HLD; p/w mechanical fall at home which resulted in left hip pain. Pt was carrying a plant and wearing flip flops when she tripped over a rug. She fell directly onto her left hip. The hip pain is most severe with movement.
Impression:
Mechanical fall with left hip fracture
CT scan of the left hip: Nondisplaced intertrochanteric fracture left femur. Mildly comminuted greater trochanteric fracture.
Orthopedic consultation
Continue pain control standing Tylenol, p.o. Oxy and IV meds as needed
status post left short cephalomedullary nail insertion on 12/18
DVT prophylaxis: Initial plan was for Lovenox. Patient refusing with that she was explained the risk versus benefits. Orthopedic now transition to aspirin 81 mg twice daily. Patient verbalized understanding to take medication.
Dyslipidemia continue statin
Tobacco smoker/nicotine dependence.
1 pack/day for 20 years
Patient declined nicotine patch
PT/OT home VN.
More than 30 minutes spent in discharge including
Final examination of the patient
Summarizing hospital stay
Instructions for continuing care to all relevant caregivers
Preparation of discharge records, prescriptions, and referral forms
Total time spent (in minutes): 45
Anticipated Discharge: Today
Subjective/Interval History
-
Date of Service: December 21, 2023
states pain is controlled with tylenol
tolerating diet
did well with PT
Objective Data
-
Vital Signs:
Vital Signs
Temp Pulse Resp BP Pulse Ox
98.1 F 77 18 126/78 96
12/21/23 08:16 12/21/23 08:16 12/21/23 08:16 12/21/23 08:16 12/21/23 08:16
I&O
0512/21/23 12/22/23
06:59 06:59 06:59
Intake Total 1909
Output Total 1049
Balance 1844
Physical Exam
-
General: Well Developed and No Apparent Distress
HEENT: Normocephalic, Atraumatic and Moist Mucous Membranes
Respiratory: Clear to Auscultation
Cardiac: Regular Rhythm and S1/S2; Negative Murmur, Rub or Gallop
GI: Soft, Nontender, Nondistended and Normal Bowel Sounds; Negative Organomegaly
Rectal: Deferred by Provider
Musculoskeletal: No Clubbing, No Cyanosis, No Edema and Other (Left hip aquacell dressing noted-without swelling)
Skin: Negative Rash
Neuro: Awake and Nonfocal/Grossly Intact
Psych: Calm
--- NOTE | 2023-12-21 10:38 | W.DCSUMMARY ---
Discharge Summary
Discharge Data
Date of Admission: 12/18/23
Date of Discharge: 12/21/23
-
Pending Results: No
Hospital Course
73 yo F with pmhx of HLD, tobacco abuse, p/w mechanical fall at home which resulted in left hip pain. CT scan of the left hip: Nondisplaced intertrochanteric fracture left femur. Mildly comminuted greater trochanteric fracture. He was eval by
orthopedic and underwent to the operating room on 12/18. status post left short cephalomedullary nail insertion on 12/19/23. Postop patient did well with pain control with just Tylenol. Patient did not require any antibiotics. Patient refused
Lovenox injection. Eventually she agreed to take aspirin 81 mg twice daily per orthopedic. Patient was eval by PT and OT and recommended home VN with walker and commode. Patient did not want to go to rehab. Patient was explained risk versus
benefits on subcutaneous Lovenox for DVT prophylaxis however she refused and does orthopedic place patient on aspirin 81 mg twice daily. Patient did not want any narcotic as states she is not medication dependent person and states she will take
Tylenol for pain control.
Discharge Plan
-
Patient Disposition: Home with Home Care
Discharge Diagnosis/Procedures: Mechanical fall with left hip fracture status post left short cephalomedullary nail insertion on 12/19/23
Condition: Fair
Diet: As tolerated
Activity: With assistance
Driving Restrictions: Not until seen by your Dr
Activity Restrictions/Additional Instructions:
Follow-up in the Dr. Mccarthy office in 2 to 3 weeks repeat evaluation with planned removal of philip
Referrals:
Lyle Grayson MD [Family Provider] - in less than 1 week
Daryn Jaffe MD [Active] - in two weeks (call to make appointment for post op management. )
Prescriptions:
New
aspirin 81 mg Tablet,Delayed Release (Dr/Ec)
81 mg PO BID 28 Days Qty: 56 0RF
acetaminophen [Tylenol Extra Strength] 500 mg Tablet
1,000 mg PO Q6H 10 Days Qty: 80 0RF
Continued
simvastatin 20 MG tablet
40 mg PO HS
therapeutic multivitamin Tablet
1 tab PO DAILY
calcium carbonate 500 mg calcium (1,250 mg) Tablet
500 mg PO DAILY
cholecalciferol (vitamin D3) [Vitamin D3] 25 mcg (1,000 unit) Tablet
25 mcg PO DAILY
PreserVision AREDS 2,148 mcg-113 mg-45 mg-17.4mg Tablet
1 tab PO DAILY
Discontinued
naproxen sodium [Aleve] 220 mg Tablet
220 mg PO [id number] (Reason: mild pain)
Discharge Orders:
Discharge Patient (As Directed); Ordered 12/21/23
Ordered By: Alvaro Hopper
Discharge Date and Time
Print Language: ROMANSH
[2023-12-21 10:47] VITALS: BP 100/60; PULSE 76
[2023-12-21 11:00] VITALS: BP 100/60
--- NOTE | 2023-12-21 12:09 | CM ---
met with patient and her at bedside.she is stable for dc home.she hs again declined home care sevices stating that theodore says i am doig great.she is amb okay with her walker,she will see bunny murray in 2 weeks.patient already signed imm
letter.etienne to tansport her home.
== END 2023-12-21 12:20 | disposition home or self-care (01) | DRG 482 ==
LOC: 2 SOUTH 03:29
PROVIDERS: Internal Medicine; ADMITTING PHYSICIAN Internal Medicine; ATTENDING PHYSICIAN Hospitalist; CONSULT PHYSICIAN Orthopaedic Surgery; EMERGENCY PHYSICIAN Emergency Medicine; FAMILY PHYSICIAN Family Medicine
PROC: 0QS706Z Reposition Left Upper Femur with Intramedullary Internal Fixation Device, Open Approach (ICD-10-PCS; 2023-12-19)
DX: S72.145A Nondisplaced intertrochanteric fracture of left femur, initial encounter for closed fracture (principal); E78.00 Pure hypercholesterolemia, unspecified; F17.210 Nicotine dependence, cigarettes, uncomplicated; E78.5 Hyperlipidemia, unspecified; M19.90 Unspecified osteoarthritis, unspecified site; W18.09XA Striking against other object with subsequent fall, initial encounter; Y93.01 Activity, walking, marching and hiking; Y92.009 Unspecified place in unspecified non-institutional (private) residence as the place of occurrence of the external cause; Z91.040 Latex allergy status; Z88.2 Allergy status to sulfonamides
CPT/HCPCS: 73502; 73700; 76000; 80048; 80053; 81003; 81015; 82550; 83735; 85025; 85027; 86850; 86900; 86901; 87086; 96374; 97116; 97162; 97166; 97530; 99285; 99406; C1713; C1769

== ENCOUNTER → 2023-12-26 14:23 | Outpatient (REF) | payer MEDICARE, OTHER, SELFPAY | LOC: RAD 14:23 | PROVIDERS: ATTENDING PHYSICIAN Family Medicine | DX: M79.89 Other specified soft tissue disorders (principal); R22.42 Localized swelling, mass and lump, left lower limb | CPT/HCPCS: 93971 ==

== ENCOUNTER → 2024-01-28 09:58 | Outpatient (REF) | payer MEDICARE, OTHER, SELFPAY ==
[2024-01-28 12:13] LABS: % Basophils 0.5 % (0-2); % Eosinophils 2.3 % (0-6); % Immature Granulocytes 0.2 % (0-0.5); % Lymphocytes 29.1 % (20.5-51.1); % Monocytes 8.2 % (1.7-9.3); % Neutrophils 59.7 % (42.2-75.2); Absolute Eosinophils 0.1 10^3/uL (0-0.7); Absolute Lymphocytes 1.6 10^3/uL (1.2-3.4); Absolute Monocytes 0.5 10^3/uL (0.1-0.6); Absolute Neutrophils 3.4 10^3/uL (1.4-6.5); Hematocrit 43.9 % (37.0-47.0); Hemoglobin 14.4 g/dL (12.0-16.0); Mean Corp Hgb Conc. 32.8 g/dL (33.0-37.0); Mean Corpuscular Volume 94.4 fL (81.0-99.0); Mean Platelet Volume 9.4 fL (7.4-10.4); Nucleated Red Blood Cells % 0 %; Platelet Count 239 10^3/uL (130-400); Red Blood Cell Count 4.65 10^6/uL (4.20-5.40); Red Cell Dist. Width 12.3 % (11.5-14.5); White Blood Cell Count 5.6 10^3/uL (4.8-10.8)
[2024-01-28 12:14] LABS: Urine Albumin Negative (Neg - Trace); Urine Bilirubin Negative (Negative); Urine Character Very Cloudy (Clear); Urine Color Yellow; Urine Glucose Negative (Negative); Urine Ketone Trace (Negative); Urine Leukocyte Trace (Negative); Urine Nitrite Negative (Negative); Urine Occult Blood 1+ (Negative); Urine Urobilinogen Negative (Neg - 1+)
[2024-01-28 12:40] LABS: Urine Amorphous Seen; Urine Urothelial Cell 0-2 /LPF (FEW)
[2024-01-28 12:41] LABS: Urine Bacteria Few (Negative); Urine Red Blood Cell 0-2 /HPF (0-2); Urine White Cell 0-2 /HPF (0-5)
[2024-01-28 12:42] LABS: ALT (SGPT) 15 U/L (0-35); AST (SGOT) 23 U/L (14-36); Albumin 4.4 g/dl (3.5-5.0); Alkaline Phosphatase 82 U/L (38-126); Blood Urea Nitrogen 22 mg/dl (7-17); Calcium 9.9 mg/dl (8.4-10.2); Carbon Dioxide 26 mmol/L (22-30); Chloride 103 mmol/L (98-107); Glucose 79 mg/dl (70-99); HDL Cholesterol 72 mg/dl; LDL Cholesterol, Calculated 73 mg/dl; Potassium 4.5 mmol/L (3.5-5.1); Sodium 138 mmol/L (135-145); Total Bilirubin 0.7 mg/dl (0.2-1.3); Total Cholesterol 163 mg/dl (50-199); Triglyceride 93 mg/dl (10-149); Very Low Density Lipoprotein 18 mg/dl (0-30); eGFR > 60.00
== END ==
LOC: HWLAB 09:58
PROVIDERS: ATTENDING PHYSICIAN Family Medicine
DX: E78.5 Hyperlipidemia, unspecified (principal); K57.90 Diverticulosis of intestine, part unspecified, without perforation or abscess without bleeding
CPT/HCPCS: 36415; 80053; 80061; 81003; 81015; 85025

== ENCOUNTER → 2024-07-12 10:54 | Outpatient (REF) | payer MEDICARE, OTHER, SELFPAY | LOC: HWWDC 10:54 | PROVIDERS: ATTENDING PHYSICIAN Obstetrics & Gynecology Gynecology; FAMILY PHYSICIAN Internal Medicine | DX: Z12.31 Encounter for screening mammogram for malignant neoplasm of breast (principal) | CPT/HCPCS: 77063; 77067 ==

== ENCOUNTER → 2024-12-10 10:39 | Outpatient (REF) | payer MEDICARE, OTHER, SELFPAY | LOC: HWRAD 10:39 | PROVIDERS: ATTENDING PHYSICIAN Internal Medicine | DX: M25.551 Pain in right hip (principal) | CPT/HCPCS: 73502 ==

== ENCOUNTER → 2025-06-02 08:53 | Outpatient (REF) | payer MEDICARE, OTHER, SELFPAY ==
[2025-06-02 11:55] LABS: Hematocrit 44.1 % (37.0-47.0); Hemoglobin 14.5 g/dL (12.0-16.0); Mean Corp Hgb Conc. 32.9 g/dL (33.0-37.0); Mean Corpuscular Volume 93.0 fL (81.0-99.0); Nucleated Red Blood Cells % 0 %; Platelet Count 215 10^3/uL (130-400); Red Cell Dist. Width 12.1 % (11.5-14.5)
[2025-06-02 13:01] LABS: TSH 1.78 uIU/ml (0.47-4.68)
[2025-06-02 13:06] LABS: ALT (SGPT) 19 U/L (0-35); AST (SGOT) 23 U/L (14-36); Albumin 4.7 g/dl (3.5-5.0); Alkaline Phosphatase 59 U/L (38-126); Blood Urea Nitrogen 25 mg/dl (7-17); Calcium 9.5 mg/dl (8.4-10.2); Carbon Dioxide 27 mmol/L (22-30); Chloride 104 mmol/L (98-107); Glucose 90 mg/dl (70-99); HDL Cholesterol 91 mg/dl; LDL Cholesterol, Calculated 91 mg/dl; Potassium 4.4 mmol/L (3.5-5.1); Sodium 138 mmol/L (135-145); Total Protein 7.3 g/dl (6.3-8.2); Very Low Density Lipoprotein 21 mg/dl (0-30); eGFR > 60.00
== END ==
LOC: HWLAB 08:53
PROVIDERS: ATTENDING PHYSICIAN Internal Medicine
DX: E78.5 Hyperlipidemia, unspecified (principal); R53.83 Other fatigue
CPT/HCPCS: 36415; 80053; 80061; 84443; 85025